=== PATIENT | female | born 1940 ===

== ENCOUNTER 2016-08-21 17:31 | Emergency (ER) | payer BC ==
--- NOTE | 2016-08-21 18:30 | Emergency Department Record ---
History of Present Illness - General Chief Complaint: Fall Injury Stated Complaint: FALL/ COLLAR BONE INJURY Time Seen by Provider: 08/21/16 18:29 Source: Patient Mode of Arrival: Ambulatory Limitations: No limitations - History of Present Illness Initial Comments: The patient was walking down the stairs at home and slipped and landed on her buttocks. She believes she stuck her L arm out and caught herself and then felt pain over her L clavicle. She did not tumble down the stairs or slip down the stairs after that. Now she is having pain in the L collarbone area. She denies any L CP, SOB, back pain, or L shoulder pain. 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 Place Fall Occurred: Home Loss of Consciousness: None Prolonged Down Time?: No Symptoms Prior to Fall: None Severity: Severe Severity scale (1-10): 10 Quality: Other Context: Tripped/slipped Associated Symptoms: Denies - Related Data Home Medications Medication Instructions Recorded Confirmed Last Taken Aspirin [Aspirin EC] 81 mg PO DAILY 10/17/14 08/21/16 08/24/15 Calcium Citrate/Vitamin D3 2 each PO TID 10/17/14 08/21/16 08/24/15 [Citracal-Vit D 250 mg-200 Tab] Carvedilol [Coreg] 12.5 mg PO BID 10/17/14 08/21/16 08/24/15 Duloxetine HCl [Cymbalta] 60 mg PO DAILY 10/17/14 08/21/16 08/24/15 Fenofibrate [Lofibra] 160 mg PO DAILY 10/17/14 08/21/16 08/24/15 Ibandronate Sodium [Boniva] 150 mg PO MONTHLY 10/17/14 08/21/16 08/24/15 Pravastatin Sodium [Pravachol] 80 mg PO DAILY 10/17/14 08/21/16 08/24/15 Trazodone HCl [Desyrel] 150 mg PO QHS 10/17/14 08/21/16 08/24/15 Hydrocodone/Acetaminophen [[place] 1 tab PO DAILY 08/24/15 08/21/16 08/24/15 5mg/325mg] Losartan/Hydrochlorothiazide 1 each PO DAILY 08/24/15 08/21/16 08/24/15 [Hyzaar 50-12.5 Tablet] Thyroid,Pork [[place] Thyroid] 60 mg PO DAILY 08/24/15 08/21/16 08/24/15 Allergies Allergy/AdvReac Type Severity Reaction Status Date / Time No Known Drug Allergies Allergy Verified 08/24/15 11:57 Travel Screening - Travel/Exposure Within Last 30 Days Have you traveled within the last 30 days?: No Review of Systems Constitutional: Denies: Chills, Fever Eyes: Denies: Eye discharge Respiratory: Denies: Cough, Dyspnea Past Medical History - SOCIAL HISTORY Smoking Status: Light tobacco smoker (<10/day) Alcohol Use: None Drug Use: None - RESPIRATORY Hx Respiratory Disorders: Yes Comment:: tracheostomy d/t complication of a thyroid surgery. - CARDIOVASCULAR Hx Cardio Disorders: Yes Hx Hypertension: Yes Comment:: high cholesterol - NEURO Hx Neuro Disorders: No - GI Hx GI Disorders: No - Hx Genitourinary Disorders: No - ENDOCRINE Hx Endocrine Disorders: Yes Hx Diabetes: No Hx Thyroid Disease: Yes (thyroid removed.) - MUSCULOSKELETAL Hx Musculoskeletal Disorders: Yes Hx Osteoporosis: Yes - PSYCH Hx Psych Problems: Yes Hx Anxiety: Yes - HEMATOLOGY/ONCOLOGY Hx Hematology/Oncology Disorders: Yes Hx Cancer: Yes (L breast) Hx Chemotherapy: No Hx Radiation Therapy: Yes Family Medical History Any Significant Family History?: Yes Hx Cancer: Father Hx Heart Disease: Brother/Sister Physical Exam - General General Appearance: Alert, Oriented x3, Cooperative, No acute distress - Head Head exam: Atraumatic, Normocephalic, Normal inspection - Eye Eye exam: Normal appearance, PERRL - Neck Neck exam: Normal inspection, Full ROM. negative: Tenderness - Respiratory Respiratory exam: Normal lung sounds bilaterally. negative: Respiratory distress - Cardiovascular Cardiovascular Exam: Regular rate, Normal rhythm, Normal heart sounds - GI/Abdominal GI/Abdominal exam: Soft, Normal bowel sounds. negative: Tenderness - Extremities Extremities exam: Tenderness (There is tenderness to the medial and proximal L clavicle with very mild swelling. ). negative: Normal inspection - Neurological Neurological exam: Normal gait. negative: Abnormal gait Course Vital Signs 08/21/16 08/21/16 17:38 17:46 Temperature 98.0 F 98.0 F Pulse Rate [ 76 Pulse Ox Probe] Respiratory 12 Rate Blood Pressure 196/99 [Left Arm] Pulse Ox 96 Disposition Disposition: Discharge Clinical Impression: Injury of left clavicle Qualifiers: Encounter type: initial encounter Qualified Code(s): S49.92XA - Unspecified injury of left shoulder and upper arm, initial encounter Disposition: Home, Self-Care Condition: (1) Good Instructions: Fall Prevention for Older Adults (ED), Chest Wall Pain (ED) Additional Instructions: Please continue the ice to the area and take your home [place] for pain. Please see your PCP for recheck in 2-3 days. Please return to the ER for any increased pain, swelling, or any trouble breathing. Forms: Patient Portal Access Time of Disposition: 19:39
[2016-08-21] MEDS ORDERED: HYDROCODONE/APAP 5/325MG TABLET PO ONE (18:35)
--- NOTE | 2016-08-24 14:57 | RADIOLOGY REPORT ---
EXAM: LEFT CLAVICLE HISTORY: FALL. TECHNIQUE: Three views of the left clavicle were obtained. Comparison: None. Encounter: Initial. FINDINGS: Diffuse osteopenia. Negative for an acute fracture or dislocation. Tracheostomy tube partially seen. Degenerative changes of the shoulder. IMPRESSION: OSTEOPENIA. DEGENERATIVE CHANGE. NEGATIVE FOR ACUTE ABNORMALITY. JOB NUMBER: [id number] MTDD
== END 2016-08-21 19:42 | disposition home or self-care (01) ==
LOC: ER 17:31
DX: S49.92XA Unspecified injury of left shoulder and upper arm, initial encounter (principal); W10.9XXA Fall (on) (from) unspecified stairs and steps, initial encounter; Y92.009 Unspecified place in unspecified non-institutional (private) residence as the place of occurrence of the external cause
CPT/HCPCS: 99283

== ENCOUNTER 2016-08-24 13:57 | Emergency (ER) | payer BC | END 2016-08-24 15:20 | disposition left against medical advice (07) | LOC: ER 13:57 | DX: Z53.20 Procedure and treatment not carried out because of patient's decision for unspecified reasons (principal) ==

== ENCOUNTER 2017-09-06 10:41 | Emergency (ER) | payer BC ==
--- NOTE | 2017-09-06 11:05 | Emergency Department Record ---
History of Present Illness - General Chief Complaint: Fall Injury Stated Complaint: FALL Time Seen by Provider: 09/06/17 10:55 Source: Patient, Family Mode of Arrival: EMS Limitations: Other (sleepy) - History of Present Illness Initial Comments: 77 yo female presents by EMS for weakness and multiple falls since last night. The states the first episode occurred around 2am. She was getting up to go the bathroom and fell out of bed. He was able to get her to her feet and back in bed. He found her in the AM off her night trach tube humidifier with the tubing detached. In the morning she was able to get up although weak and ambulate. She was up in the bathroom and he heard a fall. He found her on the floor. She hit her head against a dresser hard enough to move the dresser. No LOC. Her family came over and tried to get her through the house but she was too weak to ambulate on her own and EMS called. She has had memory loss the last several months. She has been independent and driving even the last few days. She is very tired and weak today that is different from her baseline. She has a trach since 2014 due to injury at the time of the vocal cords. PCP is Esther. 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 She has been mildly weak and tired for a couple days but last near normal at bedtime last night MD Complaint: Fall, Other (weakness) Onset/Timin -: Days(s) Fall From: Out of bed When Fall Occurred: Recurrent falls Fall Witnessed: Yes, by family Place Fall Occurred: Home Loss of Consciousness: None Prolonged Down Time?: No Symptoms Prior to Fall: None Location: Head Context: Other Associated Symptoms: Headache - Related Data Home Medications Medication Instructions Recorded Confirmed Last Taken Baclofen [Baclofen] 20 mg PO DAILY 09/06/17 09/06/17 Unknown Losartan/Hydrochlorothiazide 1 each PO DAILY 09/06/17 09/06/17 Unknown [Losartan-Hctz 100-25 mg Tab] Thyroid,Pork [Nature-Throid] 81.2 mg PO DAILY 09/06/17 09/06/17 Unknown Allergies Allergy/AdvReac Type Severity Reaction Status Date / Time No Known Drug Allergies Allergy Verified 08/24/15 11:57 Travel Screening - Travel/Exposure Within Last 30 Days Have you traveled within the last 30 days?: No Review of Systems Constitutional: Reports: Malaise, Weakness. Denies: Chills, Fever Eyes: Denies: Eye discharge, Eye pain, Photophobia, Vision change ENT: Denies: Congestion, Throat pain Respiratory: Denies: Cough, Dyspnea, Hemoptysis, Stridor, Wheezes Cardiovascular: Denies: Chest pain, Dyspnea on exertion, Palpitations, Syncope Endocrine: Reports: Fatigue. Denies: Polydipsia, Polyuria Gastrointestinal: Denies: Abdominal pain, Diarrhea, Nausea, Vomiting Genitourinary: Denies: Dysuria, Urgency Musculoskeletal: Denies: Arthralgia, Back pain, Joint swelling, Myalgia Skin: Denies: Bruising, Change in color, Rash Neurological: Reports: Abnormal gait, Confusion, Weakness Psychiatric: Denies: Anxiety Hematological/Lymphatic: Denies: Blood Clots, Easy bleeding, Easy bruising, Swollen glands Past Medical History - SOCIAL HISTORY Smoking Status: Light tobacco smoker (<10/day) - RESPIRATORY Hx Respiratory Disorders: Yes Comment:: tracheostomy d/t complication of a thyroid surgery. - CARDIOVASCULAR Hx Cardio Disorders: Yes Hx Hypertension: Yes Comment:: high cholesterol - NEURO Hx Neuro Disorders: No - GI Hx GI Disorders: No - Hx Genitourinary Disorders: No - ENDOCRINE Hx Endocrine Disorders: Yes Hx Diabetes: No Hx Thyroid Disease: Yes (thyroid removed.) - MUSCULOSKELETAL Hx Musculoskeletal Disorders: Yes Hx Osteoporosis: Yes - PSYCH Hx Psych Problems: Yes Hx Anxiety: Yes - HEMATOLOGY/ONCOLOGY Hx Hematology/Oncology Disorders: Yes Hx Cancer: Yes (L breast) Hx Chemotherapy: No Hx Radiation Therapy: Yes Family Medical History Any Significant Family History?: Yes Hx Cancer: Father Hx Heart Disease: Brother/Sister Physical Exam - General General Appearance: Cooperative, Other (sleeping but awakens to stimulation) - Head Head exam: Atraumatic, Normocephalic, Normal inspection Head exam detail: Other (No obvious swelling, blood, contusions, limited by hair ). negative: Abrasion, Contusion - Eye Eye exam: Normal appearance, PERRL, EOMI. negative: Conjunctival injection, Scleral icterus Pupils: Normal accommodation - ENT ENT exam: Normal exam, Mucous membranes moist, Normal orophraynx Ear exam: Normal external inspection Nasal Exam: Normal inspection Mouth exam: Normal external inspection Teeth exam: Normal inspection Throat exam: Normal inspection - Neck Neck exam: Normal inspection, Full ROM. negative: Tenderness - Respiratory Respiratory exam: Normal lung sounds bilaterally. negative: Respiratory distress, Rhonchi, Stridor, Wheezes - Cardiovascular Cardiovascular Exam: Regular rate, Normal rhythm, Normal heart sounds Peripheral Pulses: 2+: Radial (R), Radial (L) - GI/Abdominal GI/Abdominal exam: Soft. negative: Tenderness - Rectal Rectal exam: Deferred - exam: Deferred - Extremities Extremities exam: Normal inspection, Full ROM, Normal capillary refill. negative: Tenderness - Back Back exam: Reports: Normal inspection, Full ROM. Denies: CVA tenderness (R), CVA tenderness (L), Muscle spasm, Tenderness, Vertebral tenderness - Neurological Neurological exam: Abnormal gait, Altered (sleeping but awakens to physical stimulation, answers yes and no to questions. ) - Psychiatric Psychiatric exam: Flat affect. negative: Agitated, Anxious - Skin Skin exam: Dry, Intact, Normal color, Warm Course Vital Signs 09/06/17 10:42 Temperature 98.3 F Pulse Rate 65 Respiratory 16 Rate Blood Pressure 197/101 Pulse Ox 95 - Reevaluation(s) Reevaluation #1: 09/06/17 11:08 HR is a sinus pedro on the monitor with HR from 65 done to 41. No witnessed pauses She did not take her morning medications per family She is afebrile and hypertensive 09/06/17 11:25 EKG Sinus rhythm rate is 56, intervals normal, axis L, ST Lateral ST changes, early R wave. The medications were reviewed with the pharmacist. 09/06/17 11:27 No acute changes on the CBC or CMP 09/06/17 11:30 The Troponin was elevated at 0.105 09/06/17 11:49 TSH is 8.8 09/06/17 11:50 ABG was reviewed. Normal pH and PCO2. No hypoxia. 09/06/17 12:03 The UA is negative for acute changes 09/06/17 13:01 The HR periodically drops to 40 then rebounds to 55-65 Pacing pads placed The HCT, CCT, and CXR were all read as negative for acute changes Given the bradycardia, elevated troponin she will be transferred to [facility] ( family preference) for further work up. 09/06/17 13:08 09/06/17 13:19 Aspirin given due to negative HCT and positive Troponin Through [facility] SW Dr Zepeda. He accepts the patient for transfer. 09/06/17 13:20 09/06/17 13:50 About a 3 second pause noted. Patient asymptomatic when checked Waiting for a bed at [facility]. Patient is comfortable 09/06/17 17:35 [facility] has been called many times today. They have a bed now available but it will need to be cleaned. The family have updated many times. A repeat troponin will be drawn as we wait still for the bed assignment. She has been stable. The has expressed his disapproval and frustration many times. He was reassured many times about the delays and our desire to provide the best care. He was verbally abusive at time and redirected with reassurance. 09/06/17 19:10 Medical Decision Making - Lab Data Result diagrams: 09/06/17 10:30 09/06/17 10:30 Disposition Disposition: Transfer Clinical Impression: Bradycardia, Falls, Weakness, Syncope Disposition: Acute Care Hospital Transfer Transfer To: [facility] Reason For Transfer: Bradycardia, elevated troponin Accepting Physician: Loly Time Discussed w/Accepting Physician: 13:22 Condition: (2) Stable Forms: Patient Portal Access Time of Disposition: 13:03 Quality - Quality Measures Quality Measures: N/A - Blood Pressure Screening Does Patient Have Any of the Following: No Blood Pressure Classification: Pre-Hypertensive BP Reading Systolic Measurement: 184 Diastolic Measurement: 85 Screening for High Blood Pressure: < Pre-Hypertensive BP, F/U Documented > [ G8950] Pre-Hypertensive Follow-up Interventions: Referral to alternative/primary care provider.
[2017-09-06 11:08] LABS: BASO % 0.6 % (0-6); EOS % 3.1 % (0-6); GRAN % 51.8 % (47-80); HEMATOCRIT 46.3 % (35.0-47.0); HEMOGLOBIN 15.6 gm/dl (11.6-16.0); LYMPH % 34.4 % (16-45); MEAN CELL VOLUME 85.4 fl (81-97); MEAN CORPUSCULAR HGB CONC 33.7 g/dl (32-36); MEAN PLATELET VOLUME 10.9 fl (7.4-10.4); MONO % 10.1 % (0-9); PLATELET COUNT 322 K/uL (130-400); RED BLOOD COUNT 5.42 M/uL (3.80-5.40); RED CELL DISTRIBUTION WIDTH 15.4 % (11.5-14.5); WHITE BLOOD COUNT W/O DIFF 8.4 K/uL (4.2-12.2)
[2017-09-06 11:09] LABS: MEAN CORPUSCULAR HEMOGLOBIN 28.7 pg (27-33)
[2017-09-06 11:19] LABS: BLOOD UREA NITROGEN 24 mg/dL (8-23); CREATININE 0.8 mg/dL (0.5-0.9); EST GLOMERULAR FILTRATION RATE > 60 mL/min; TOTAL PROTEIN 7.3 g/dL (6.6-8.7)
[2017-09-06 11:20] LABS: PARTIAL THROMBOPLASTIN TIME 25.8 SECONDS (24.5-39.1); PROTHROMBIN TIME (PATIENT) 10.6 SECONDS (9.5-12.1)
[2017-09-06 11:21] LABS: GLUCOSE,RANDOM 100 mg/dL (74-109)
[2017-09-06 11:24] LABS: ALB/GLOB RATIO 1.4 (1.1-1.8); ALBUMIN 4.3 g/dL (4.0-5.0); ALKALINE PHOSPHATASE 45 U/L (35-104); ALT/SGPT 15 U/L (<33); AST/SGOT 20 U/L (10.0-35.0)
[2017-09-06 11:33] LABS: ARTERIAL BLD GAS O2 SATURATION 97.6 % (95-98); ARTERIAL BLOOD GAS BASE EXCESS 2.4 mmol/L (-2 - 3); ARTERIAL BLOOD GAS HCO3 26.4 mmol/L (18-23); ARTERIAL BLOOD GAS PCO2 40.6 mmHg (35-48); ARTERIAL BLOOD GAS pH 7.43 (7.35-7.45); METHEMOGLOBIN 0.6 % (0.0-1.5); O2 HEMOGLOBIN 94.1 % vol (94-99); TOTAL HEMOGLOBIN 14.4 g/dl (11.6-16)
[2017-09-06 11:34] LABS: THYROID STIMULATING HORMONE 8.82 uIU/mL (0.270-4.20)
[2017-09-06 11:34] LABS: ALLEN TEST PASS
[2017-09-06 11:51] LABS: URINE APPEARANCE CLEAR; URINE BILIRUBIN NEGATIVE (NEGATIVE); URINE BLOOD TRACE-I (NEGATIVE); URINE COLOR YELLOW; URINE GLUCOSE (UA) NEGATIVE (NEGATIVE); URINE KETONE NEGATIVE (NEGATIVE); URINE LEUKOCYTE ESTERASE NEGATIVE (NEGATIVE); URINE NITRITE NEGATIVE (NEGATIVE); URINE PROTEIN NEGATIVE (NEGATIVE); URINE UROBILINOGEN 0.2 E.U./dL (0.20 - 1.00)
[2017-09-06 12:06] LABS: URINE AMORPHOUS SEDIMENT 2+; URINE BACTERIA NONE SEEN; URINE SQUAMOUS EPITHELIAL CELL 0 - 2 /hpf; URINE WBC 0 - 2 (0-2/hpf)
[2017-09-06] MEDS ORDERED: ASPIRIN 81 MG CHEWABLE TABLET PO ONE (13:14)
[2017-09-06] MEDS ORDERED: BACLOFEN 10 MG TABLET PO ONE (17:16)
--- NOTE | 2017-09-07 17:37 | CT SCAN REPORT ---
EXAM: CT SCAN HEAD WO CONTRAST HISTORY: FALL. TECHNIQUE: Sequential axial images were obtained from the foramen magnum to the vertex without contrast administration. FINDINGS: The brain volume is normal. There is no large territorial infarct, hemorrhage, mass effect, or midline shift. No extra-axial fluid collection. Orbits, paranasal sinuses, and mastoid air cells are normal. IMPRESSION: NO ACUTE INTRACRANIAL ABNORMALITY IS APPRECIATED. JOB NUMBER: [id number] MTDD
--- NOTE | 2017-09-07 17:40 | RADIOLOGY REPORT ---
EXAM: CHEST 2 VIEWS HISTORY: DIFFICULTY IN BREATHING. TECHNIQUE: Frontal and lateral views of the chest were performed. FINDINGS: Tracheostomy tube is in place. Heart size is normal. Lungs are hyperinflated. No infiltrate or pleural effusion. There is a severe levoconvex scoliotic curvature of the thoracic spine. IMPRESSION: 1. NO ACUTE PULMONARY DISEASE PROCESS. 2. TRACHEOSTOMY TUBE IN PLACE. 3. SEVERE LEVOCONVEX SCOLIOTIC CURVATURE OF THE THORACIC SPINE. JOB NUMBER: [id number] MTDD
--- NOTE | 2017-09-07 17:45 | CT SCAN REPORT ---
EXAM: CT SCAN CERVICAL SPINE WO CONTRAST HISTORY: FALL. TECHNIQUE: Sequential axial images were obtained through the cervical spine without intravenous contrast administration. Sagittal and coronal reformatted images were performed. FINDINGS: There is multilevel degenerative change. No evidence of fracture, subluxation, or perched facet. Prevertebral soft tissues are normal. Tracheostomy tube in place. Minimal paraseptal emphysematous change in the lung apices. IMPRESSION: 1. MULTILEVEL DEGENERATIVE CHANGE. NO EVIDENCE OF FRACTURE, SUBLUXATION, OR PERCHED FACET. 2. TRACHEOSTOMY TUBE IN PLACE. JOB NUMBER: [id number] MTDD
== END 2017-09-06 18:45 | disposition short-term general hospital (02) ==
LOC: ER 10:41
DX: R00.1 Bradycardia, unspecified (principal); R79.89 Other specified abnormal findings of blood chemistry; R55 Syncope and collapse; R51 Headache; R53.1 Weakness; S09.90XA Unspecified injury of head, initial encounter; R26.89 Other abnormalities of gait and mobility; I10 Essential (primary) hypertension; F17.210 Nicotine dependence, cigarettes, uncomplicated; Z85.3 Personal history of malignant neoplasm of breast; W06.XXXA Fall from bed, initial encounter; Y92.003 Bedroom of unspecified non-institutional (private) residence as the place of occurrence of the external cause
CPT/HCPCS: 36600; 70450; 71046; 72125; 80053; 81001; 82375; 82803; 84443; 84484; 85025; 85610; 85730; 93005; 93010; 99285

== ENCOUNTER 2017-10-18 08:39 | Emergency (ER) | payer BC ==
--- NOTE | 2017-10-18 09:12 | Emergency Department Record ---
History of Present Illness - General Chief Complaint: Cough Stated Complaint: BLOOD COMING OUT OF TRACH Time Seen by Provider: 10/18/17 09:04 Source: Patient, Family Mode of Arrival: Ambulatory Limitations: No limitations - History of Present Illness Initial Comments: The patient has a trach and is here due to a chronic cough that has not changed but now she is having mild intermittent blood in her sputum. She denies any fever, chills, SOB, CP, or worsening of her chronic cough. The patient also has had mild blood when suctioning her trach intermittently. Presently the patient is coughing mild colored sputum up with no blood. MD Complaint: Cough Onset/Timin -: Days(s) Consistency: Intermittent - Related Data Home Medications Medication Instructions Recorded Confirmed Last Taken Amlodipine Besylate [Norvasc] 10 mg PO DAILY 10/18/17 10/18/17 10/17/17 Chlorthalidone [Chlorthalidone] 25 mg PO ASDIR 10/18/17 10/18/17 10/17/17 Previous Rx's Medication Instructions Recorded Doxycycline Monohydrate [Mondoxyne 100 mg PO BID #14 capsule 10/18/17 Nl] Allergies Allergy/AdvReac Type Severity Reaction Status Date / Time No Known Drug Allergies Allergy Verified 10/18/17 08:45 Travel Screening - Travel/Exposure Within Last 30 Days Have you traveled within the last 30 days?: No - Travel/Exposure Within Last Year Have you traveled outside the [place] in the last year?: No - Additonal Travel Details Have you been exposed to anyone with a communicable illness?: No - Travel Symptoms Symptom Screening: None Review of Systems Constitutional: Denies: Chills, Fever Eyes: Denies: Eye discharge ENT: Denies: Congestion Respiratory: Reports: Cough. Denies: Dyspnea Past Medical History - SOCIAL HISTORY Smoking Status: Light tobacco smoker (<10/day) Alcohol Use: None Drug Use: None - RESPIRATORY Hx Respiratory Disorders: Yes Comment:: tracheostomy d/t complication of a thyroid surgery. - CARDIOVASCULAR Hx Cardio Disorders: Yes Hx Hypertension: Yes Comment:: high cholesterol - NEURO Hx Neuro Disorders: No - GI Hx GI Disorders: No - Hx Genitourinary Disorders: No - ENDOCRINE Hx Endocrine Disorders: Yes Hx Diabetes: No Hx Thyroid Disease: Yes (thyroid removed.) - MUSCULOSKELETAL Hx Musculoskeletal Disorders: Yes Hx Osteoporosis: Yes - PSYCH Hx Psych Problems: Yes Hx Anxiety: Yes - HEMATOLOGY/ONCOLOGY Hx Hematology/Oncology Disorders: Yes Hx Cancer: Yes (L breast) Hx Chemotherapy: No Hx Radiation Therapy: Yes Family Medical History Any Significant Family History?: Yes Hx Cancer: Father Hx Heart Disease: Brother/Sister Physical Exam - General General Appearance: Alert, Cooperative, No acute distress - Head Head exam: Atraumatic, Normocephalic - Eye Eye exam: Normal appearance, PERRL - Neck Neck exam: Normal inspection, Full ROM. negative: Tenderness - Respiratory Respiratory exam: Rhonchi (at the bases mildly.). negative: Normal lung sounds bilaterally, Accessory muscle use, Chest wall tenderness, Decreased breath sounds, Respiratory distress - Cardiovascular Cardiovascular Exam: Regular rate, Normal rhythm, Normal heart sounds - GI/Abdominal GI/Abdominal exam: Soft, Normal bowel sounds. negative: Tenderness - Extremities Extremities exam: Normal inspection, Full ROM, Normal capillary refill. negative: Tenderness - Back Back exam: Reports: Normal inspection - Neurological Neurological exam: Alert. negative: Motor sensory deficit - Psychiatric Psychiatric exam: negative: Anxious Course Vital Signs 10/18/17 08:52 Temperature 98.3 F Pulse Rate 92 H Respiratory 22 Rate Blood Pressure 128/107 Pulse Ox 93 L - Reevaluation(s) Reevaluation #1: The patient is doing very well at this. She denies any CP, SOB, or DEEPAK. She was suctioned in the ED with no blood present. I did explain the neg CXR to the patient and the need for the oral Abx. We will have her F/U with her PCP early next week for recheck. 10/18/17 09:54 Medical Decision Making - Data Complexity MDM Data: X-Ray Ordered and/or Reviewed - Radiology Data Radiology results: Report reviewed (LCXR: No acute changes.) Disposition Disposition: Discharge Clinical Impression: Bronchitis Disposition: Home, Self-Care Condition: (2) Stable Instructions: COPD (Chronic Obstructive Pulmonary Disease) (ED) Additional Instructions: Please continue your regular medicines and add the Doxycycline as directed. Please see your Family doctor early next week for recheck and return to the ER for any worsening symptoms. Prescriptions: Doxycycline Monohydrate [Mondoxyne Nl] 100 mg PO BID #14 capsule Forms: Patient Portal Access Time of Disposition: 09:54 Quality - Quality Measures Quality Measures: Adult Bronchitis - Blood Pressure Screening View Details: Yes Does Patient Have Any of the Following: Active Dx of HTN Blood Pressure Classification: Normal BP Reading Systolic Measurement: 117 Diastolic Measurement: 69 Screening for High Blood Pressure: Patient Exclusion, Hx of HTN [G9744]
--- NOTE | 2017-10-19 13:06 | RADIOLOGY REPORT ---
EXAM: CHEST, TWO VIEWS HISTORY: TRACHEOSTOMY PLACED THREE YEARS AGO, COUGHING UP BLOOD FOR THREE DAYS. TECHNIQUE: AP and lateral views of the chest were obtained. Comparison: Two view chest 09/06/17. FINDINGS: Tracheostomy remains in place. Stable heart size. Prominent thoracic levoscoliosis as before with hypertrophic spurring in the spine. Kyphosis as well. There are probably some compression fractures in the thoracic spine which were likely present previously as well, but are relatively poorly seen on both the current and prior chest x-ray technique. This could be further assessed with a current thoracic spine series if clinically warranted. The lungs appear hyperinflated suggesting underlying COPD. IMPRESSION: 1. HYPERINFLATION SUGGESTING COPD. NO DEFINITE ACUTE INFILTRATE SEEN. 2. TRACHEOSTOMY IN PLACE. 3. PROMINENT KYPHOSCOLIOSIS LIKELY WITH COMPRESSION FRACTURES IN THE THORACIC SPINE. JOB NUMBER: [id number] MTDD
== END 2017-10-18 10:00 | disposition home or self-care (01) ==
LOC: ER 08:39
DX: J20.9 Acute bronchitis, unspecified (principal); I10 Essential (primary) hypertension; F17.210 Nicotine dependence, cigarettes, uncomplicated
CPT/HCPCS: 71046; 99283

== ENCOUNTER 2018-06-14 12:30 | Emergency (ER) | payer BC ==
--- NOTE | 2018-06-14 12:51 | Emergency Department Record ---
History of Present Illness - General Chief Complaint: Chest Pain Stated Complaint: CHEST PAIN Time Seen by Provider: 06/14/18 12:45 Source: Patient Mode of Arrival: Ambulatory Limitations: No limitations - History of Present Illness Initial Comments: The patient is here due to CP that began just prior to presenting to the ER. She described the pain as an aching that radiated across the chest and to the back. There was no SOB, DEEPAK, sweating, or nausea with it. The pain lasted about 30 minutes and did resolve spontaneously. Presently she is pain free. She has no hx of any cardiac issues. MD Complaint: Chest pain Onset/Timin -: Minutes(s) Pain Location: Other Pain Radiation: Back Severity: Moderate Severity scale (1-10): 5 Consistency: Constant, Now resolved - Related Data Previous Rx's Medication Instructions Recorded RX: Doxycycline Monohydrate 100 mg PO BID #14 capsule 10/18/17 [Mondoxyne Nl] Allergies Allergy/AdvReac Type Severity Reaction Status Date / Time No Known Drug Allergies Allergy Verified 06/14/18 12:32 Travel Screening - Travel/Exposure Within Last 30 Days Have you traveled within the last 30 days?: No - Travel/Exposure Within Last Year Have you traveled outside the [place] in the last year?: No - Additonal Travel Details Have you been exposed to anyone with a communicable illness?: No - Travel Symptoms Symptom Screening: None Review of Systems Constitutional: Denies: Chills, Fever Eyes: Denies: Eye discharge ENT: Denies: Congestion Respiratory: Denies: Cough Cardiovascular: Reports: Chest pain. 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 - CARDIOVASCULAR Hx Cardio Disorders: Yes Hx Hypertension: Yes Comment:: high cholesterol - NEURO Hx Neuro Disorders: No - GI Hx GI Disorders: No - Hx Genitourinary Disorders: No - ENDOCRINE Hx Endocrine Disorders: Yes Hx Diabetes: No Hx Thyroid Disease: Yes (thyroid removed.) - MUSCULOSKELETAL Hx Musculoskeletal Disorders: Yes Hx Osteoporosis: Yes - PSYCH Hx Psych Problems: Yes Hx Anxiety: Yes - HEMATOLOGY/ONCOLOGY Hx Hematology/Oncology Disorders: Yes Hx Cancer: Yes (L breast) Hx Chemotherapy: No Hx Radiation Therapy: Yes Family Medical History Any Significant Family History?: Yes Hx Cancer: Father Hx Heart Disease: Brother/Sister Physical Exam - General General Appearance: Alert, Oriented x3, Cooperative, No acute distress - Head Head exam: Atraumatic, Normocephalic, Normal inspection - Eye Eye exam: Normal appearance, PERRL - ENT Throat exam: Normal inspection. negative: Tonsillar erythema, Tonsillar exudate - Neck Neck exam: Normal inspection, Full ROM. negative: Tenderness - Respiratory Respiratory exam: Normal lung sounds bilaterally. negative: Rales, Respiratory distress - Cardiovascular Cardiovascular Exam: Regular rate, Normal rhythm, Normal heart sounds, Systolic murmur (2/6 MANUEL LLSB.) - GI/Abdominal GI/Abdominal exam: Soft, Normal bowel sounds. negative: Tenderness - Extremities Extremities exam: Normal inspection, Full ROM, Normal capillary refill. negative: Tenderness - Back Back exam: Reports: Normal inspection - Neurological Neurological exam: Alert, Normal gait, Oriented X3. negative: Abnormal gait, Motor sensory deficit Course Vital Signs 06/14/18 12:37 Temperature 99.5 F Pulse Rate 100 H Respiratory 26 H Rate Blood Pressure 118/82 Pulse Ox 96 - Reevaluation(s) Reevaluation #1: The patient is doing very well at this time. She denies any pain or discomfort. I did discuss the mildly elevated Trop with her which was similar to her visit on 09/06/17. She was transferred to [facility] on that visit but she is no sure what was done. We are in the process of obtaining those records. 06/14/18 13:46 Reevaluation #2: Due to not being able to obtain the cardiac tests here at [facility] I did recommend transfer to [facility]. I did discuss the case with Dr. Terrell and he does agree to the transfer and will consult. 06/14/18 14:19 Reevaluation #3: I did discuss the case with Dr. Vickers and he does accept the admission for D service. 06/14/18 14:27 Medical Decision Making - Data Complexity MDM Data: Labs Ordered and/or Reviewed, X-Ray Ordered and/or Reviewed, EKG Ordered and/or Reviewed - Lab Data Result diagrams: 06/14/18 12:50 06/14/18 12:50 - EKG Data -: EKG Interpreted by Me EKG: No Acute Changes, Normal EKG - Radiology Data Radiology results: Report reviewed (CXR: Neg for acute changes.) Disposition Disposition: Transfer Clinical Impression: Chest pain at rest Disposition: Acute Care Hospital Transfer Transfer To: [facility] Reason For Transfer: Cardiology Accepting Physician: Rancho Time Discussed w/Accepting Physician: 14:28 Condition: (2) Stable Forms: Patient Portal Access Time of Disposition: 14:28 Quality - Quality Measures Quality Measures: N/A - Blood Pressure Screening View Details: Yes Does Patient Have Any of the Following: No Blood Pressure Classification: Normal BP Reading Systolic Measurement: 108 Diastolic Measurement: 79 Screening for High Blood Pressure: < Normal BP, F/U Not Required > [G8783]
[2018-06-14 13:00] LABS: BASO % 0.5 % (0-6); EOS % 2.7 % (0-6); GRAN % 62.6 % (47-80); HEMATOCRIT 44.9 % (35.0-47.0); HEMOGLOBIN 14.5 gm/dl (11.6-16.0); LYMPH % 24.3 % (16-45); MEAN CELL VOLUME 89.3 fl (81-97); MEAN CORPUSCULAR HEMOGLOBIN 28.8 pg (27-33); MEAN CORPUSCULAR HGB CONC 32.3 g/dl (32-36); MEAN PLATELET VOLUME 10.1 fl (7.4-10.4); MONO % 9.9 % (0-9); PLATELET COUNT 339 K/uL (130-400); RED BLOOD COUNT 5.03 M/uL (3.80-5.40); WHITE BLOOD COUNT W/O DIFF 8.3 K/uL (4.2-12.2)
[2018-06-14 13:14] LABS: PARTIAL THROMBOPLASTIN TIME 25.4 SECONDS (24.5-39.1)
[2018-06-14] MEDS ORDERED: ASPIRIN 325 MG TABLET PO ONE (14:08)
--- NOTE | 2018-06-15 12:32 | RADIOLOGY REPORT ---
EXAM: CHEST, TWO VIEWS HISTORY: DIFFICULTY BREATHING. TECHNIQUE: Frontal and lateral views of the chest were performed. Comparison: 10/18/17. FINDINGS: The tracheostomy in place. The heart size is normal. The lungs are hyperinflated. No infiltrate or pleural effusion. Healed posterior rib fracture deformity. IMPRESSION: NO ACUTE PULMONARY DISEASE PROCESS. JOB NUMBER: [id number] MTDD
== END 2018-06-14 14:52 | disposition short-term general hospital (02) ==
LOC: ER 12:30
DX: R07.89 Other chest pain (principal); R79.89 Other specified abnormal findings of blood chemistry; I10 Essential (primary) hypertension; F17.210 Nicotine dependence, cigarettes, uncomplicated
CPT/HCPCS: 71046; 80048; 82550; 82553; 84484; 85025; 85610; 85730; 93005; 93010; 99285

== ENCOUNTER 2018-09-26 09:58 | Emergency (ER) | payer BC ==
--- NOTE | 2018-09-26 10:29 | Emergency Department Record ---
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 Seen in [facility] on monday with UTI and started on Macrobid. Yesterday her said she was better last night and recently started on Chantix and hasn't stopped cigs yet. Patient is concerned the chantix is making her weak. PMH copd and monday ready care did blood ,chest xray and urine. Onset/Timin -: Week(s) Location: Generalized Severity: Moderate Improves with: None Worsens with: None Associated Symptoms: Denies other symptoms - Linda Coma Scale Eye Response: (4) Open spontaneously Motor Response: (6) Obeys commands Verbal Response: (5) Oriented Linda Total: 15 - Related Data Home Medications Medication Instructions Recorded Confirmed Last Taken Varenicline Tartrate [Chantix] 0.5 mg PO DAILY 09/26/18 09/26/18 09/26/18 Previous Rx's Medication Instructions Recorded Levofloxacin [Levaquin Tab] 500 mg PO DAILY #7 tab 09/26/18 Allergies Allergy/AdvReac Type Severity Reaction Status Date / Time No Known Allergies Allergy PT UNSURE Verified 09/26/18 10:09 OF REACTION Travel Screening - Travel/Exposure Within Last 30 Days Have you traveled within the last 30 days?: No - Travel/Exposure Within Last Year Have you traveled outside the [place] 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 - CARDIOVASCULAR Hx Cardio Disorders: Yes Hx Hypertension: Yes Comment:: high cholesterol - NEURO Hx Neuro Disorders: No - GI Hx GI Disorders: No - Hx Genitourinary Disorders: No - ENDOCRINE Hx Endocrine Disorders: Yes Hx Diabetes: No Hx Thyroid Disease: Yes (thyroid removed.) - MUSCULOSKELETAL Hx Musculoskeletal Disorders: Yes Hx Osteoporosis: Yes - PSYCH Hx Psych Problems: Yes Hx Anxiety: Yes - HEMATOLOGY/ONCOLOGY Hx Hematology/Oncology Disorders: Yes Hx Cancer: Yes (L breast) Hx Chemotherapy: No Hx Radiation Therapy: Yes Family Medical History Any Significant Family History?: Yes Hx Cancer: Father Hx Heart Disease: Brother/Sister Course Vital Signs 09/26/18 10:14 Temperature 98.7 F Pulse Rate 96 H Respiratory 20 Rate Blood Pressure 138/92 Pulse Ox 96 - Reevaluation(s) Reevaluation #1: reviewed her chest xray and it shows some scarring and hyperinflated, no infiltrates seen. 09/26/18 10:57 09/26/18 10:59 lab reviewed from [facility] care and urine culture showed mixed fausto Medical Decision Making - Lab Data Result diagrams: 09/26/18 10:15 09/26/18 10:15 Disposition Clinical Impression: Weakness, Dehydration, Bronchitis Disposition: Home, Self-Care Condition: (1) Good Instructions: Weakness (ED) Additional Instructions: stop nitrodantin and start levaquin 500 mg one a day for 7 days drink fluids to help on dehydration follow up with Dr. Santana in 1-5 days sooner if worse stop chantix Prescriptions: Levofloxacin [Levaquin Tab] 500 mg PO DAILY #7 tab Forms: Patient Portal Access Time of Disposition: 12:03 Quality - Quality Measures Quality Measures: N/A - Blood Pressure Screening Does Patient Have Any of the Following: No, Active Dx of HTN Blood Pressure Classification: Hypertensive Reading Systolic Measurement: 138 Diastolic Measurement: 92 Screening for High Blood Pressure: Patient Exclusion, Hx of HTN [G9744]
[2018-09-26] MEDS ORDERED: 0.9 % SODIUM CHLORIDE 1000ML 1,000 ML IV PRN (10:31)
[2018-09-26 10:45] LABS: BASO % 0.5 % (0-6); EOS % 2.7 % (0-6); GRAN % 67.6 % (47-80); HEMATOCRIT 46.9 % (35.0-47.0); HEMOGLOBIN 15.2 gm/dl (11.6-16.0); LYMPH % 20.8 % (16-45); MEAN CELL VOLUME 89.3 fl (81-97); MEAN CORPUSCULAR HGB CONC 32.4 g/dl (32-36); MEAN PLATELET VOLUME 10.4 fl (7.4-10.4); MONO % 8.4 % (0-9); PLATELET COUNT 320 K/uL (130-400); RED BLOOD COUNT 5.25 M/uL (3.80-5.40); RED CELL DISTRIBUTION WIDTH 14.2 % (11.5-14.5); WHITE BLOOD COUNT W/O DIFF 7.5 K/uL (4.2-12.2)
[2018-09-26 11:04] LABS: BLOOD UREA NITROGEN 26 mg/dL (8-23); CREATININE 0.9 mg/dL (0.5-0.9); EST GLOMERULAR FILTRATION RATE > 60 mL/min
[2018-09-26 11:07] LABS: GLUCOSE,RANDOM 105 mg/dL (74-109)
[2018-09-26 11:18] LABS: URINE APPEARANCE CLEAR; URINE BILIRUBIN NEGATIVE (NEGATIVE); URINE BLOOD NEGATIVE (NEGATIVE); URINE COLOR YELLOW; URINE GLUCOSE (UA) NEGATIVE (NEGATIVE); URINE KETONE NEGATIVE (NEGATIVE); URINE LEUKOCYTE ESTERASE NEGATIVE (NEGATIVE); URINE NITRITE NEGATIVE (NEGATIVE); URINE PROTEIN NEGATIVE (NEGATIVE); URINE UROBILINOGEN 0.2 E.U./dL (0.20 - 1.00)
== END 2018-09-26 12:20 | disposition home or self-care (01) ==
LOC: ER 09:58
DX: J20.9 Acute bronchitis, unspecified (principal); E86.0 Dehydration; R53.1 Weakness; J44.9 Chronic obstructive pulmonary disease, unspecified; I10 Essential (primary) hypertension; F17.210 Nicotine dependence, cigarettes, uncomplicated
CPT/HCPCS: 80048; 81003; 85025; 99284